=== PATIENT | male | born 1945 | race Caucasian/White ===

== ENCOUNTER 2025-06-25 17:10 | Inpatient (IN) ==
--- NOTE | 2025-06-25 18:21 | Emergency Department Note ---
Impression & Plan Pneumonia, Coronavirus infection, Hypotension, Soft tissue sarcoma ED Provider Note CHIEF COMPLAINT: Nausea, vomiting, fever HISTORY OF PRESENTING ILLNESS: This 79-year-old male patient presents to the emergency department with his for evaluation of nausea, vomiting, right sided abdominal pain, and subjective fever (did not have a thermometer). The patient states that he had similar symptoms when he was diagnosed with the sarcoma and bowel perforation. He has not been moving his bowels well recently. He did have a small BM this morning. He has been burping foul smelling burps recently. He denies any urinary symptoms. He denies any chest pain or SOB. 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 The patient is currently under treatment with oral chemo through the [facility]. However, he has been off of the oral chemo for the past 5 weeks. [facility] [place] The patient just returned home from a cruise today and states the last 4 days of his cruise he had nausea, vomiting, no fever. No symptoms today, but he called his oncologist who told him to come in for evaluation. The patient has a history of abdominal blockages as well as bowel perforation. The patient is currently visiting his sister in [place] on their way back to [place] after the cruise. REVIEW OF SYSTEMS: See HPI for pertinent positives and pertinent negatives. ALLERGIES: Psychiatric meds like Sertraline, Morphine (nausea) MEDICATIONS: Flonase, magnesium 420 mg BID, Synthroid 125 mcg QD, Claritin, Trospium 20 mg QD, Protonix 40 mg QD, Spironolactone 25 mg 2 tabs QD, Pregabalin 50 mg BID, Metformin 500 mg QD, Flomax, Aspririn 81 mg, Cholecalcif 50 mg QD, Atorvastatin 10 mg QHS PAST MEDICAL HISTORY: Hypothyroidism, GERD, DM, allergic rhinitis, high cholesterol, adrenal cysts, soft tissue sarcoma of the abdomen, PTSD, HTN, BPH PHYSICAL EXAM: VITALS: Vitals are noted on the nurse's note and reviewed by myself. GENERAL: Non toxic, in no acute distress, non-diaphoretic. SKIN: Capillary refill <2 sec. EYES: PERRLA. EOMI. Conjunctivae without injection, sclerae without icterus. NOSE: Patent without discharge. MOUTH: Mucous membranes moist. Uvula midline. Airway patent. NECK: Supple without nuchal rigidity. HEART: Regular rate and rhythm without murmurs gallops or rubs. LUNGS: Clear to auscultation bilaterally without wheezes, rales or rhonchi. No retractions or accessory muscle use. ABDOMEN: Positive bowel sounds x 4. Normal tympanic percussion. Soft, tender to palpation in the central and right side of the abdomen. No masses or hepatosplenomegaly. Roche sign negative. No CVA tenderness. No guarding, rigidity, or rebound tenderness. No focal RLQ or LLQ tenderness. NEURO: Patient was alert and oriented. No focal neurological deficits. DIFFERENTIAL DIAGNOSIS: Differential diagnosis includes hepatitis, pancreatitis, cholecystitis, cholelithiasis, appendicitis, kidney stone, pyelonephritis, UTI, gastritis, gastroenteritis, mesenteric adenitis, obstruction, constipation, hernia, abdominal abscess, perforation, diverticulitis, IBD, ischemic colitis, abdominal aortic aneurysm, testicular torsion, prostatitis, or others. ED COURSE AND MEDICAL DECISION MAKING: HISTORY FROM INDEPENDENT HISTORIAN: Additional history obtained from the patient's MEDICATIONS GIVEN: A total of 2 L normal saline solution bolus. Tylenol 1000 mg IV. Magnesium 1 g IV. Rocephin 2 g IV and doxycycline 100 mg p.o. MONITOR: Continuous senior treasury consultant: Order was placed for continuous senior treasury consultant. Patient was placed on the senior treasury consultant and continuous pulse ox. Patient was noted to be in normal sinus rhythm at an initial rate of 90 bpm per my interpretation. INTERPRETATION OF LABS: I interpreted the labs with full lab results as below in the lab section of this note. Laboratory results pertinent to the emergent complaint are discussed in the MDM section below. The patient was advised to follow up with their PCP and/or specialist(s) for further outpatient monitoring and management of any abnormal results. INTERPRETATION OF IMAGING: Imaging studies were interpreted by myself and read by radiology as per the imaging section of this note. The patient was advised to follow up with their PCP and/or specialist(s) for further outpatient management of any non-emergent abnormal findings. Chest x-ray showed opacities in the left midlung and at the right base, atelectasis, scarring, and/or infiltrate. 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 CHRONIC MEDICAL/SOCIAL CONDITIONS AFFECTING CARE: History of soft tissue sarcoma of the abdomen receiving oral chemotherapy. Recent cruise. CONSULTATIONS: On-call hospitalist [facility] SUMMARY: I examined the patient. 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 However, the patient did recently stop his chemotherapy to go on a cruise. The patient returned from his cruise today and states that the last 4 days of his cruise he had nausea, vomiting, and subjective fevers along with right sided abdominal pain that felt the same as when he was diagnosed with a sarcoma and had a bowel perforation. The patient states that the nausea, vomiting, and fevers have resolved today, but he is still having some mild abdominal discomfort. The patient contacted his oncologist who advised him to come to the ER for further evaluation. An IV lock was placed and labs were drawn. The patient was initially given 500 mL normal saline solution bolus and Tylenol 1000 mg IV. Lactate and procalcitonin were normal. White blood cell count normal at 9.06. Hemoglobin low at 10.6, but the patient states this is baseline for him. Platelet count normal at 327. Coags were normal. Sodium low at 135, BUN elevated at 28, glucose 148, but CMP otherwise without concerning findings. Lipase normal. High-sensitivity troponin normal. Magnesium low at 1.6 and he was given magnesium 1 g IV. Urinalysis with trace ketones, but otherwise normal. Respiratory BioFire positive for coronavirus 229E. Blood cultures are pending. While in the ER, the patient did become hypotensive. He was given another 500 mL normal saline solution bolus with mild continued hypotension. Chest x-ray showed opacities in the left midlung and at the right base, atelectasis, scarring, and/or infiltrate. The patient was given another 1 L normal saline solution bolus for a total of 2 L normal saline solution bolus. The patient's ideal body weight sepsis fluid calculation is 2181.6 mL. Additional IV fluids were not given due to concern for fluid overload. The patient was given Rocephin 2 g IV and doxycycline 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 I had a meaningful discussion about this patient with Dr. Blackwell who agrees with my assessment and the treatment plan. Due to the patient's history of cancer and oral chemotherapy with the coronavirus infection, pneumonia, and hypotension, we feel the patient would benefit from admission for further evaluation and treatment. The patient and his were agreeable to admission after discussion. I spoke with the on-call hospitalist who agreed to admit the patient for further management. Please refer to their dictation for further details. The patient's care was transferred in stable condition. DIAGNOSIS: Pneumonia Coronavirus 229E Hypotension History of soft tissue sarcoma Past Med/Surg History Problem List (Updated 06/25/25 @ 23:49 by Jenna Kevin PA-C) Soft tissue sarcoma (Acute) Hypotension (Acute) Coronavirus infection (Acute) Pneumonia (Acute) Social History Smoking Status: Former smoker Preferred Language: Ugandan Feels Safe at Home: Yes Allergies Allergies Allergy/AdvReac Type Severity Reaction Status Date / Time morphine AdvReac Nausea Verified 06/25/25 22:45 Results & Data (ED) Vital Signs Vital Signs - 24 hr 06/25/25 17:39 06/25/25 18:23 06/25/25 19:11 Temperature 36.6 C Temperature Source Oral Pulse Rate 104 H 99 H Pulse Rate [Apical] 98 H Pulse Rhythm [Apical] Regular Pulse Strength [Apical] Respiratory Rate 20 19 Respiratory Effort / Characteristics Non-Labored Spontaneous Respiratory Depth Normal Respiratory Pattern Regular Blood Pressure 107/70 Blood Pressure [Left Arm] 115/76 Blood Pressure Mean 82 Blood Pressure Mean [Left Arm] 89 Blood Pressure Position [Left Arm] Sitting Pulse Oximetry 95 97 Oxygen Delivery Method Room Air Room Air Sepsis Recent Fever Within 48 Hours No Sepsis New/Unexplained Change in Mental Status N/A Sepsis Action Taken by Nursing No Action Required 06/25/25 21:00 06/25/25 22:43 Temperature Temperature Source Pulse Rate Pulse Rate [Apical] 91 H 88 Pulse Rhythm [Apical] Regular Pulse Strength [Apical] Normal Respiratory Rate 18 20 Respiratory Effort / Characteristics Non-Labored Spontaneous Non-Labored Spontaneous Respiratory Depth Normal Normal Respiratory Pattern Regular Regular Blood Pressure Blood Pressure [Left Arm] 96/68 L 95/68 L Blood Pressure Mean Blood Pressure Mean [Left Arm] 77 77 Blood Pressure Position [Left Arm] Sitting Lying Pulse Oximetry 95 91 Oxygen Delivery Method Room Air Room Air Sepsis Recent Fever Within 48 Hours Sepsis New/Unexplained Change in Mental Status Sepsis Action Taken by Nursing Laboratory Data 06/25/25 18:13 06/25/25 18:13 Lab Results 06/25/25 06/25/25 06/25/25 Range/Units 18:13 18:48 19:05 WBC 9.06 (4.8-10.8) K/ul RBC 3.24 L (4.70-6.10) M/uL Hgb 10.6 L (14.0-18.0) g/dL Hct 31.6 L (42.0-52.0) % MCV 97.5 (80.0-100.0) fL MCH 32.7 (25.0-34.0) pg MCHC 33.5 (32.0-36.0) g/dL RDW Std Deviation 47.7 H (36.4-46.3) fL RDW Coeff of Urvashi 13.2 (11.5-14.5) % Plt Count 327 (130-400) K/uL MPV 8.7 L (9.4-12.4) fL Immature Gran % (Auto) 0.8 % Neut % (Auto) 68.5 % Lymph % (Auto) 17.1 % Hickman % (Auto) 11.0 % Eos % (Auto) 2.3 % Baso % (Auto) 0.3 % Neut # (Auto) 6.20 (1.40-6.50) K/uL Lymph # (Auto) 1.55 (1.20-3.40) K/uL Hickman # (Auto) 1.00 H (0.11-0.59) K/uL Eos # (Auto) 0.21 (0.00-0.50) K/uL Baso # (Auto) 0.03 (0.00-0.20) K/uL Immature Gran # (Auto) 0.07 (0.01-0.20) K/uL PT 11.1 (9.0-12.0) Seconds INR 1.1 (0.9-1.1) APTT 27 (21-31) Seconds PTT Ratio 1.0 Sodium 135 L (136-145) mmol/L Potassium 3.9 (3.5-5.1) mmol/L Chloride 102 (98-107) mmol/L Carbon Dioxide 25 (21-32) mmol/L Anion Gap 8 (3-11) BUN 28 H (6-23) mg/dl Creatinine 1.27 (0.6-1.4) mg/dl Est Cr Clr Drug Dosing Not Reportable eGFR 58.19 BUN/Creatinine Ratio 22.0 H (10-20) Glucose 148 H (70-99(Fasting)) mg/dl Lactate 1.1 (0.4-2.0) mmol/L Calcium 9.6 (8.6-10.3) mg/dl Magnesium 1.6 L (1.7-2.4) mg/dl Total Bilirubin 0.4 (0.2-1.0) mg/dl AST 11 L (13-39) U/L ALT 8 (7-52) U/L Alkaline Phosphatase 75 (34-104) U/L Troponin I High Sens 14.6 (0-20) pg/ml Total Protein 6.5 (6.0-8.3) gm/dl Albumin 3.5 (3.4-5.0) gm/dl Globulin 3.0 (2.5-4.0) gm/dl Albumin/Globulin Ratio 1.2 (0.9-2) Lipase 16 (11-82) U/L Procalcitonin 0.23 (0-0.5) ng/ml Urine Color Urine Appearance (Clear) Urine pH (4.5-7.5) Ur Specific [place] (1.000-1.030) Urine Protein (Negative) Urine Glucose (UA) (Negative) Urine Ketones (Negative) Urine Blood (Negative) Urine Nitrite (Negative) Urine Bilirubin (Negative) Urine Urobilinogen (Negative) Ur Leukocyte Esterase (Negative) Urine WBC (Auto) (0-5) /hpf Urine RBC (Auto) (0-2) /hpf U Hyaline Cast (Auto) (0-2) /lpf U Epithel Cells (Auto) (0-2) /hpf Urine Bacteria (Auto) (None Seen) Urine Comment Adenovirus (PCR) Not Detected (NotDetected) B. pertussis DNA (PCR) Not Detected (NotDetected) B.parapertussis DNA PCR Not Detected (NotDetected) C. pneumoniae DNA (PCR) Not Detected (NotDetected) Coronavirus OC43 (PCR) Not Detected (NotDetected) Coronavirus HKU1 (PCR) Not Detected (NotDetected) Coronavirus 229E (PCR) DETECTED A (NotDetected) SARS-CoV-2 (PCR) Not Detected (NotDetected) Coronavirus NL63 (PCR) Not Detected (NotDetected) Human Metapneumovir PCR Not Detected (NotDetected) Influenza Type A (PCR) Not Detected (NotDetected) Influenza Type B (PCR) Not Detected (NotDetected) M. pneumoniae (PCR) Not Detected (NotDetected) Parainfluenza 1 (PCR) Not Detected (NotDetected) Parainfluenza 2 (PCR) Not Detected (NotDetected) Parainfluenza 3 (PCR) Not Detected (NotDetected) Parainfluenza 4 (PCR) Not Detected (NotDetected) RSV (PCR) Not Detected (NotDetected) Entero/Rhino (PCR) Not Detected (NotDetected) 06/25/25 Range/Units 19:47 WBC (4.8-10.8) K/ul RBC (4.70-6.10) M/uL Hgb (14.0-18.0) g/dL Hct (42.0-52.0) % MCV (80.0-100.0) fL MCH (25.0-34.0) pg MCHC (32.0-36.0) g/dL RDW Std Deviation (36.4-46.3) fL RDW Coeff of Urvashi (11.5-14.5) % Plt Count (130-400) K/uL MPV (9.4-12.4) fL Immature Gran % (Auto) % Neut % (Auto) % Lymph % (Auto) % Hickman % (Auto) % Eos % (Auto) % Baso % (Auto) % Neut # (Auto) (1.40-6.50) K/uL Lymph # (Auto) (1.20-3.40) K/uL Hickman # (Auto) (0.11-0.59) K/uL Eos # (Auto) (0.00-0.50) K/uL Baso # (Auto) (0.00-0.20) K/uL Immature Gran # (Auto) (0.01-0.20) K/uL PT (9.0-12.0) Seconds INR (0.9-1.1) APTT (21-31) Seconds PTT Ratio Sodium (136-145) mmol/L Potassium (3.5-5.1) mmol/L Chloride (98-107) mmol/L Carbon Dioxide (21-32) mmol/L Anion Gap (3-11) BUN (6-23) mg/dl Creatinine (0.6-1.4) mg/dl Est Cr Clr Drug Dosing eGFR BUN/Creatinine Ratio (10-20) Glucose (70-99(Fasting)) mg/dl Lactate (0.4-2.0) mmol/L Calcium (8.6-10.3) mg/dl Magnesium (1.7-2.4) mg/dl Total Bilirubin (0.2-1.0) mg/dl AST (13-39) U/L ALT (7-52) U/L Alkaline Phosphatase (34-104) U/L Troponin I High Sens (0-20) pg/ml Total Protein (6.0-8.3) gm/dl Albumin (3.4-5.0) gm/dl Globulin (2.5-4.0) gm/dl Albumin/Globulin Ratio (0.9-2) Lipase (11-82) U/L Procalcitonin (0-0.5) ng/ml Urine Color Yellow Urine Appearance Clear (Clear) Urine pH 5.5 (4.5-7.5) Ur Specific [place] 1.021 (1.000-1.030) Urine Protein Trace H (Negative) Urine Glucose (UA) Negative (Negative) Urine Ketones Trace H (Negative) Urine Blood Negative (Negative) Urine Nitrite Negative (Negative) Urine Bilirubin Negative (Negative) Urine Urobilinogen Negative (Negative) Ur Leukocyte Esterase Negative (Negative) Urine WBC (Auto) 0-5 (0-5) /hpf Urine RBC (Auto) 0-2 (0-2) /hpf U Hyaline Cast (Auto) 0-2 (0-2) /lpf U Epithel Cells (Auto) 0-2 (0-2) /hpf Urine Bacteria (Auto) None Seen (None Seen) Urine Comment Adenovirus (PCR) (NotDetected) B. pertussis DNA (PCR) (NotDetected) B.parapertussis DNA PCR (NotDetected) C. pneumoniae DNA (PCR) (NotDetected) Coronavirus OC43 (PCR) (NotDetected) Coronavirus HKU1 (PCR) (NotDetected) Coronavirus 229E (PCR) (NotDetected) SARS-CoV-2 (PCR) (NotDetected) Coronavirus NL63 (PCR) (NotDetected) Human Metapneumovir PCR (NotDetected) Influenza Type A (PCR) (NotDetected) Influenza Type B (PCR) (NotDetected) M. pneumoniae (PCR) (NotDetected) Parainfluenza 1 (PCR) (NotDetected) Parainfluenza 2 (PCR) (NotDetected) Parainfluenza 3 (PCR) (NotDetected) Parainfluenza 4 (PCR) (NotDetected) RSV (PCR) (NotDetected) Entero/Rhino (PCR) (NotDetected) Administered Medications Sodium Chloride (Nss) 1,000 mls @ 999 mls/hr IV .Q1H1M ONE Stop: 06/25/25 23:45 Last Admin: 06/25/25 23:21 Dose: 999 mls/hr Documented By: CRISTINA Discontinued Medications Doxycycline Hyclate (Doxycycline Hyclate 100 Mg Cap) 100 mg PO NOW STA Stop: 06/25/25 22:47 Last Admin: 06/25/25 23:21 Dose: 100 mg Documented By: CRISTINA Sodium Chloride (Nss) 500 mls @ 999 mls/hr IV .Q31M ONE Stop: 06/25/25 19:08 Last Infusion: 06/25/25 20:40 Dose: Infused Documented By: [facility] [place] Admin: 06/25/25 19:00 Dose: 999 mls/hr Documented By: aster Acetaminophen (Ofirmev) 1,000 mg in 100 mls @ 400 mls/hr IV NOW STA Stop: 06/25/25 18:52 Last Infusion: 06/25/25 19:49 Dose: Infused Documented By: [facility] [place] [place] Admin: 06/25/25 19:00 Dose: 400 mls/hr Documented By: aster Sodium Chloride (Nss) 500 mls @ 999 mls/hr IV .Q31M ONE Stop: 06/25/25 21:44 Last Infusion: 06/25/25 22:29 Dose: Infused Documented By: aster Admin: 06/25/25 21:23 Dose: 999 mls/hr Documented By: aster Ceftriaxone Sodium (Rocephin) 2,000 mg in 50 mls @ 100 mls/hr IV NOW STA Stop: 06/25/25 23:15 Last Admin: 06/25/25 23:21 Dose: 100 mls/hr Documented By: CRISTINA Ioversol (Optiray 320 100ml) 93 ml IV ONCE ONE Stop: 06/25/25 19:30 Last Admin: 06/25/25 19:29 Dose: 93 ml Documented By: MELVIN Imaging Data Radiologist's Impression: Abdomen/Pelvis CT 06/25/25 18:38 CT of the abdomen pelvis withContrast Technique: Postcontrast axial images of the abdomen pelvis. Coronal and sagittal reformatted images made available for review No comparison Findings: Lung bases are clear. 3.3 cm right renal cyst. 1.7 cm left renal cyst 1.9 cm left adrenal gland nodule. Remaining solid abdominal organs unremarkable in appearance. No free air or intestinal obstruction. There are numerous mesenteric lymph nodes present measuring up to 5.5 x 4.3 cm in the left upper abdomen. There is a large mass within the right lower quadrant which is indistinguishable from adjacent loops of small bowel measuring 7 x 7.2 cm. Conglomeration of loops of small bowel within the left lower quadrant also noted. Urinary bladder is unremarkable. Prostate is enlarged. Bone windows are unremarkable. 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 Electronically signed by Partha Rosales 06-25-2025 10:02 PM Chest X-Ray 06/25/25 18:38 Exam(s): XR CXR 1 VIEW EXAM: XR Chest, 1 View CLINICAL HISTORY: Reason for exam: fever, N/V, h/o sarcoma. TECHNIQUE: Frontal view of the chest. COMPARISON: No relevant prior studies available. FINDINGS: Lungs: Opacities in the left midlung and at the right base, atelectasis, scarring, or infiltrate. Pleural space: No pleural effusion. No pneumothorax. Heart: Unremarkable. No cardiomegaly. IMPRESSION: Opacities in the left midlung and at the right base, atelectasis, scarring, or infiltrate. Electronically signed by: Lauri House MD 06/25/25 22:14 PM Discharge Plan Visit Data Chief Complaint: Referred by Doctor Stated Complaint: REF BY [facility] (PREV GOT TREATMENT) ED Provider: Leonard Blackwell ED Midlevel Provider: Jenna Kevin Discharge Problem: Pneumonia, Coronavirus infection, Hypotension, Soft tissue sarcoma Patient Disposition: Admitted As Inpatient Condition: Fair Forms Stand Alone Forms: [facility] Referrals Referrals: PCP,NO [Physician] - Discharge Problem: Pneumonia Qualifiers: Pneumonia type: due to unspecified organism Laterality: unspecified laterality Lung location: unspecified part of lung Qualified Code(s): J18.9 - Pneumonia, unspecified organism Hypotension Qualifiers: Hypotension type: unspecified hypotension type Qualified Code(s): I95.9 - Hypotension, unspecified
[2025-06-25 18:25] LABS: Hematocrit (blood only) 31.6 % (42.0-52.0); Hemoglobin 10.6 g/dL (14.0-18.0); Immature Granulocytes # (auto) 0.07 K/uL (0.01-0.20); Immature Granulocytes % (auto) 0.8 %; Mean Corpuscular Hemoglobin 32.7 pg (25.0-34.0); Mean Corpuscular Volume 97.5 fL (80.0-100.0); Platelet Count 327 K/uL (130-400); RDW Standard Deviation 47.7 fL (36.4-46.3); Red Blood Count 3.24 M/uL (4.70-6.10); White Blood Count 9.06 K/ul (4.8-10.8)
[2025-06-25 18:43] LABS: Alanine Aminotransferase 8 U/L (7-52); Albumin Globulin Ratio 1.2 (0.9-2); Albumin Level 3.5 gm/dl (3.4-5.0); Alkaline Phosphatase 75 U/L (34-104); Anion Gap 8 (3-11); Bilirubin,Total 0.4 mg/dl (0.2-1.0); Blood Urea Nitrogen 28 mg/dl (6-23); Calcium 9.6 mg/dl (8.6-10.3); Carbon Dioxide 25 mmol/L (21-32); Chloride 102 mmol/L (98-107); Globulin 3.0 gm/dl (2.5-4.0); Glucose 148 mg/dl (70-99(Fasting)); Lipase 16 U/L (11-82); Potassium 3.9 mmol/L (3.5-5.1); Sodium 135 mmol/L (136-145); Total Protein 6.5 gm/dl (6.0-8.3)
[2025-06-25] MEDS: ACETAMINOPHEN 1,000 MG/100 ML VIAL IV STA (19:00)
[2025-06-25] MEDS: SODIUM CHLORIDE 0.9% 500 ML IV ONE ×2 (19:00→21:23)
[2025-06-25 19:07] LABS: INR 1.1 (0.9-1.1); Magnesium 1.6 mg/dl (1.7-2.4); Partial Thromboplastin Time 27 Seconds (21-31); Prothrombin Time 11.1 Seconds (9.0-12.0)
[2025-06-25] MEDS: OPTIRAY 320 100ml IV ONE (19:29)
[2025-06-25 19:55] LABS: Chlamydia pneumoniae PCR Not Detected (NotDetected); Coronavirus 229E PCR DETECTED (NotDetected); Coronavirus CoV-2 (COVID19)PCR Not Detected (NotDetected); Coronavirus HKU1 PCR Not Detected (NotDetected); Coronavirus NL63 PCR Not Detected (NotDetected); Coronavirus OC43PCR Not Detected (NotDetected); Human Metapneumovirus PCR Not Detected (NotDetected); Parainfluenza Virus 1 PCR Not Detected (NotDetected); Parainfluenza Virus 2 PCR Not Detected (NotDetected); Parainfluenza Virus 3 PCR Not Detected (NotDetected); Parainfluenza Virus 4 PCR Not Detected (NotDetected); Respiratory Syncytial VirusPCR Not Detected (NotDetected); Rhinovirus/Enterovirus PCR Not Detected (NotDetected)
[2025-06-25 20:01] LABS: Appearance Urine Clear (Clear); Bacteria Urine Automated None Seen (None Seen); Cast Urine Automated 0-2 /lpf (0-2); Epithelial Cell Urine Auto 0-2 /hpf (0-2); Glucose Urine UA Negative (Negative); RBC Urine Automated 0-2 /hpf (0-2); WBC Urine Automated 0-5 /hpf (0-5)
--- NOTE | 2025-06-25 22:03 | CT Scan Report ---
CT of the abdomen pelvis withContrast Technique: Postcontrast axial images of the abdomen pelvis. Coronal and sagittal reformatted images made available for review No comparison Findings: Lung bases are clear. 3.3 cm right renal cyst. 1.7 cm left renal cyst 1.9 cm left adrenal gland nodule. Remaining solid abdominal organs unremarkable in appearance. No free air or intestinal obstruction. There are numerous mesenteric lymph nodes present measuring up to 5.5 x 4.3 cm in the left upper abdomen. There is a large mass within the right lower quadrant which is indistinguishable from adjacent loops of small bowel measuring 7 x 7.2 cm. Conglomeration of loops of small bowel within the left lower quadrant also noted. Urinary bladder is unremarkable. Prostate is enlarged. Bone windows are unremarkable. 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 Electronically signed by Partha Rosales 06-25-2025 10:02 PM
--- NOTE | 2025-06-25 22:15 | XRay Report ---
Exam(s): XR CXR 1 VIEW EXAM: XR Chest, 1 View CLINICAL HISTORY: Reason for exam: fever, N/V, h/o sarcoma. TECHNIQUE: Frontal view of the chest. COMPARISON: No relevant prior studies available. FINDINGS: Lungs: Opacities in the left midlung and at the right base, atelectasis, scarring, or infiltrate. Pleural space: No pleural effusion. No pneumothorax. Heart: Unremarkable. No cardiomegaly. IMPRESSION: Opacities in the left midlung and at the right base, atelectasis, scarring, or infiltrate. Electronically signed by: Lauri House MD 06/25/25 22:14 PM
--- NOTE | 2025-06-25 23:05 | History & Physical Report ---
Date of Service June 25, 2025 Assessment & Plan (1) Hypotension: Plan: Assessment and plan below following discussion of case with ED provider and reviewing patient history/pertinent normal/abnormal diagnostic test results. 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 labs Provide patient with CD of CTAP images given abnormal findings prior to discharge. DVT prophylaxis per Lovenox subcu Full code Patient requesting updates providers. Mechelle Carrie Boggs, contact #[phone]. Text document was generated using [employer] voice recognition software. It may contain grammatical or spelling errors. Kindly contact undersigned for clarification of any documentation item in question. History of Present Illness Chief Complaint: Weakness Primary Care Provider: Dr. TANYA PEÑA from [place], [place] History obtained from patient, family, and records. Medical history significant for hypertension, hyperlipidemia, VALENTINA on CPAP, DM2 on oral medication, hypothyroidism, GIST tumor status post surgery currently on Sutent, GERD, BPH, chronic anemia (unknown baseline), adrenal nodule, marijuana use, past tobacco abuse. Patient is a resident of [place], [place] who just returned from a 12-day [place] cruise today disembarking at [facility]. Patient passing by town to visit sister who lives locally before returning home to [place] tomorrow morning. Patient became sick on the cruise 4 days ago. Achy abdominal pain associate with nausea, vomiting symptoms. No diarrhea. No obvious bleeding. Usual cough productive of yellow sputum which patient attributes to smoking history. No chest pain, no SOB. Increasing weakness. Voice change noted as well. Patient consulted ER for worsening symptoms. NSS bolus, IV ceftriaxone and doxycycline administered at the ER. Lowest SBP of 90s documented at the ER. Medical History as above Surgical History : Leg surgery, bowel surgery Family History : Lung cancer Personal/Social history : Past tobacco abuse, ongoing marijuana use, retired [employer] employee Allergies Allergy/AdvReac Type Severity Reaction Status Date / Time pollen extracts Allergy Intermediate ITCHY Verified 06/26/25 00:01 EYES, SNEEZING, CONGESTION morphine AdvReac Mild Nausea Verified 06/25/25 23:49 Home Medications Medication Instructions Recorded Confirmed Type acetaminophen 325 mg tablet 650 mg PO QID PRN Pain 06/25/25 06/26/25 History (Tylenol) aspirin 81 mg tablet,delayed 81 mg PO DAILY 06/25/25 06/26/25 History release atorvastatin 10 mg tablet 10 mg PO HS 06/25/25 06/26/25 History cholecalciferol (vitamin D3) 50 50 mcg PO DAILY 06/25/25 06/26/25 History mcg (2,000 unit) capsule (Vitamin D3) fluticasone propionate 50 2 spray intranasal DAILY 06/25/25 06/26/25 History mcg/actuation nasal spray,suspension levothyroxine 125 mcg tablet 125 mcg PO DAILYBB 06/25/25 06/26/25 History (Synthroid) loratadine 10 mg tablet (Claritin) 10 mg PO DAILY 06/25/25 06/26/25 History magnesium oxide 420 mg tablet 840 mg PO DAILY 06/25/25 06/26/25 History metformin 500 mg tablet 500 mg PO QDD 06/25/25 06/26/25 History mirtazapine 30 mg tablet 30 mg PO HS 06/25/25 06/26/25 History pantoprazole 40 mg tablet,delayed 40 mg PO DAILYBB 06/25/25 06/26/25 History release pregabalin 50 mg capsule (Lyrica) 50 mg PO BID 06/25/25 06/26/25 History spironolactone 25 mg tablet 50 mg PO DAILY 06/25/25 06/26/25 History tamsulosin 0.4 mg capsule 0.8 mg PO HS 06/25/25 06/26/25 History trospium 20 mg tablet 20 mg PO DAILYBB 06/25/25 06/26/25 History Past Med/Surg History Problem List (Updated 06/25/25 @ 23:49 by Jenna Kevin PA-C) Soft tissue sarcoma (Acute) Hypotension (Acute) Coronavirus infection (Acute) Pneumonia (Acute) Social History Smoking Status: Never smoker Hx Alcohol Use: Yes Alcohol type: beer Hx Substance Use: Yes Last Used Substance: Days (ago) Preferred Language: Tajik Communication Ability: Effective [employer]lee[employer] Worker Required: No Current Living Situation: Spouse Other Information That Helps Us Care for You: No Feels Safe at Home: Yes Safety Concerns: Feels Safe At This Time Assistive Devices: Denture - Upper, Glasses and Hearing Aid - Bilateral Review of Systems Review of Systems: As per HPI, all other systems reviewed and negative Physical Exam Physical Exam: GENERAL: Comfortable, pleasant, obese, no respiratory distress SKIN: Pallor, warm HEENT: Pale palpebral conjunctivae, no ptosis, dry buccal mucosa NECK : Supple, no tenderness CHEST : CTA, no tenderness HEART : Decreased breath sounds, no obvious murmurs ABDOMEN: Some distention, minimal epigastric tenderness EXTREMITIES : No LE swelling/tenderness, palpable pulses, no other conspicuous deformities noted NEUROLOGIC : Coherent, no facial asymmetry, no other gross focality Results & Data Results & Data Vital Signs (Past 12 Hours) Vital Signs Temp Pulse Pulse Resp BP BP Pulse Ox 06/25/25 22:43 88 20 95/68 L 91 06/25/25 21:00 91 H 18 96/68 L 95 06/25/25 19:11 98 H 19 115/76 97 06/25/25 18:23 99 H 06/25/25 17:39 36.6 C 104 H 20 107/70 95 O2 Del Method 06/25/25 22:43 Room Air 06/25/25 21:00 Room Air 06/25/25 19:11 Room Air 06/25/25 18:23 06/25/25 17:39 Room Air Laboratory Results Laboratory Results WBC 9.06 K/ul (4.8-10.8) 06/25/25 18:13 RBC 3.24 M/uL (4.70-6.10) L 06/25/25 18:13 Hgb 10.6 g/dL (14.0-18.0) L 06/25/25 18:13 Hct 31.6 % (42.0-52.0) L 06/25/25 18:13 MCV 97.5 fL (80.0-100.0) 06/25/25 18:13 MCH 32.7 pg (25.0-34.0) 06/25/25 18:13 MCHC 33.5 g/dL (32.0-36.0) 06/25/25 18:13 RDW Std Deviation 47.7 fL (36.4-46.3) H 06/25/25 18:13 RDW Coeff of [place] 13.2 % (11.5-14.5) 06/25/25 18:13 Plt Count 327 K/uL (130-400) 06/25/25 18:13 MPV 8.7 fL (9.4-12.4) L 06/25/25 18:13 Immature Gran % (Auto) 0.8 % 06/25/25 18:13 Neut % (Auto) 68.5 % 06/25/25 18:13 Lymph % (Auto) 17.1 % 06/25/25 18:13 [place] % (Auto) 11.0 % 06/25/25 18:13 Eos % (Auto) 2.3 % 06/25/25 18:13 Baso % (Auto) 0.3 % 06/25/25 18:13 Neut # (Auto) 6.20 K/uL (1.40-6.50) 06/25/25 18:13 Lymph # (Auto) 1.55 K/uL (1.20-3.40) 06/25/25 18:13 [place] # (Auto) 1.00 K/uL (0.11-0.59) H 06/25/25 18:13 Eos # (Auto) 0.21 K/uL (0.00-0.50) 06/25/25 18:13 Baso # (Auto) 0.03 K/uL (0.00-0.20) 06/25/25 18:13 Immature Gran # (Auto) 0.07 K/uL (0.01-0.20) 06/25/25 18:13 PT 11.1 Seconds (9.0-12.0) 06/25/25 18:13 INR 1.1 (0.9-1.1) 06/25/25 18:13 APTT 27 Seconds (21-31) 06/25/25 18:13 PTT Ratio 1.0 06/25/25 18:13 Sodium 135 mmol/L (136-145) L 06/25/25 18:13 Potassium 3.9 mmol/L (3.5-5.1) 06/25/25 18:13 Chloride 102 mmol/L (98-107) 06/25/25 18:13 Carbon Dioxide 25 mmol/L (21-32) 06/25/25 18:13 Anion Gap 8 (3-11) 06/25/25 18:13 BUN 28 mg/dl (6-23) H 06/25/25 18:13 Creatinine 1.27 mg/dl (0.6-1.4) 06/25/25 18:13 Est Cr Clr Drug Dosing Not Reportable 06/25/25 18:13 eGFR 58.19 06/25/25 18:13 BUN/Creatinine Ratio 22.0 (10-20) H 06/25/25 18:13 Glucose 148 mg/dl (70-99(Fasting)) H 06/25/25 18:13 Lactate 1.1 mmol/L (0.4-2.0) 06/25/25 19:05 Calcium 9.6 mg/dl (8.6-10.3) 06/25/25 18:13 Magnesium 1.6 mg/dl (1.7-2.4) L 06/25/25 18:13 Total Bilirubin 0.4 mg/dl (0.2-1.0) 06/25/25 18:13 AST 11 U/L (13-39) L 06/25/25 18:13 ALT 8 U/L (7-52) 06/25/25 18:13 Alkaline Phosphatase 75 U/L (34-104) 06/25/25 18:13 Troponin I High Sens 14.6 pg/ml (0-20) 06/25/25 18:13 Total Protein 6.5 gm/dl (6.0-8.3) 06/25/25 18:13 Albumin 3.5 gm/dl (3.4-5.0) 06/25/25 18:13 Globulin 3.0 gm/dl (2.5-4.0) 06/25/25 18:13 Albumin/Globulin Ratio 1.2 (0.9-2) 06/25/25 18:13 Lipase 16 U/L (11-82) 06/25/25 18:13 Procalcitonin 0.23 ng/ml (0-0.5) 06/25/25 18:13 Urine Color Yellow 06/25/25 19:47 Urine Appearance Clear (Clear) 06/25/25 19:47 Urine pH 5.5 (4.5-7.5) 06/25/25 19:47 Ur Specific [place] 1.021 (1.000-1.030) 06/25/25 19:47 Urine Protein Trace (Negative) H 06/25/25 19:47 Urine Glucose (UA) Negative (Negative) 06/25/25 19:47 Urine Ketones Trace (Negative) H 06/25/25 19:47 Urine Blood Negative (Negative) 06/25/25 19:47 Urine Nitrite Negative (Negative) 06/25/25 19:47 Urine Bilirubin Negative (Negative) 06/25/25 19:47 Urine Urobilinogen Negative (Negative) 06/25/25 19:47 Ur Leukocyte Esterase Negative (Negative) 06/25/25 19:47 Urine WBC (Auto) 0-5 /hpf (0-5) 06/25/25 19:47 Urine RBC (Auto) 0-2 /hpf (0-2) 06/25/25 19:47 U Hyaline Cast (Auto) 0-2 /lpf (0-2) 06/25/25 19:47 U Epithel Cells (Auto) 0-2 /hpf (0-2) 06/25/25 19:47 Urine Bacteria (Auto) None Seen (None Seen) 06/25/25 19:47 Urine Comment 06/25/25 19:47 Adenovirus (PCR) Not Detected (NotDetected) 06/25/25 18:48 B. pertussis DNA (PCR) Not Detected (NotDetected) 06/25/25 18:48 B.parapertussis DNA PCR Not Detected (NotDetected) 06/25/25 18:48 C. pneumoniae DNA (PCR) Not Detected (NotDetected) 06/25/25 18:48 Coronavirus OC43 (PCR) Not Detected (NotDetected) 06/25/25 18:48 Coronavirus HKU1 (PCR) Not Detected (NotDetected) 06/25/25 18:48 Coronavirus 229E (PCR) DETECTED (NotDetected) A 06/25/25 18:48 SARS-CoV-2 (PCR) Not Detected (NotDetected) 06/25/25 18:48 Coronavirus NL63 (PCR) Not Detected (NotDetected) 06/25/25 18:48 Human Metapneumovir PCR Not Detected (NotDetected) 06/25/25 18:48 Influenza Type A (PCR) Not Detected (NotDetected) 06/25/25 18:48 Influenza Type B (PCR) Not Detected (NotDetected) 06/25/25 18:48 M. pneumoniae (PCR) Not Detected (NotDetected) 06/25/25 18:48 Parainfluenza 1 (PCR) Not Detected (NotDetected) 06/25/25 18:48 Parainfluenza 2 (PCR) Not Detected (NotDetected) 06/25/25 18:48 Parainfluenza 3 (PCR) Not Detected (NotDetected) 06/25/25 18:48 Parainfluenza 4 (PCR) Not Detected (NotDetected) 06/25/25 18:48 RSV (PCR) Not Detected (NotDetected) 06/25/25 18:48 Entero/Rhino (PCR) Not Detected (NotDetected) 06/25/25 18:48 Impressions Abdomen/Pelvis CT 06/25/25 18:38 CT of the abdomen pelvis withContrast Technique: Postcontrast axial images of the abdomen pelvis. Coronal and sagittal reformatted images made available for review No comparison Findings: Lung bases are clear. 3.3 cm right renal cyst. 1.7 cm left renal cyst 1.9 cm left adrenal gland nodule. Remaining solid abdominal organs unremarkable in appearance. No free air or intestinal obstruction. There are numerous mesenteric lymph nodes present measuring up to 5.5 x 4.3 cm in the left upper abdomen. There is a large mass within the right lower quadrant which is indistinguishable from adjacent loops of small bowel measuring 7 x 7.2 cm. Conglomeration of loops of small bowel within the left lower quadrant also noted. Urinary bladder is unremarkable. Prostate is enlarged. Bone windows are unremarkable. 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 Electronically signed by Partha Rosales 06-25-2025 10:02 PM Chest X-Ray 06/25/25 18:38 Exam(s): XR CXR 1 VIEW EXAM: XR Chest, 1 View CLINICAL HISTORY: Reason for exam: fever, N/V, h/o sarcoma. TECHNIQUE: Frontal view of the chest. COMPARISON: No relevant prior studies available. FINDINGS: Lungs: Opacities in the left midlung and at the right base, atelectasis, scarring, or infiltrate. Pleural space: No pleural effusion. No pneumothorax. Heart: Unremarkable. No cardiomegaly. IMPRESSION: Opacities in the left midlung and at the right base, atelectasis, scarring, or infiltrate. Electronically signed by: Lauri House MD 06/25/25 22:14 PM Diagnostic Findings EKG as per my interpretation rate 95, NSR, normal axis, RBBB, no ischemia (1) Hypotension Hypotension type: unspecified hypotension type Qualified Code(s): I95.9 - Hypotension, unspecified
[2025-06-25] MEDS: SODIUM CHLORIDE 0.9% 1,000 ML IV ONE (23:21)
[2025-06-25] MEDS: cefTRIAXone SODIUM 2,000 MG/50 ML BAG IV STA (23:21)
[2025-06-25] MEDS: DOXYCYCLINE HYCLATE 100 MG CAP PO STA (23:21)
--- NOTE | 2025-06-25 23:44 | Emergency Department Note ---
ED Visit Note ED Physician Supervisory Note & Attestation: I was consulted by the Advanced Practice Provider, Jenna Kevin PA-C. I personally made/approved the management plan and take responsibility for the patient management. I performed a substantive portion of the visit. This includes the aspects of: MDM: 79-year-old gentleman with known cancer recently held his chemo med arrives for illness. Found to be hypotensive and workup revealing pneumonia and viral illness. Blood cultures have been sent earlier in the stay. He remains persist ently on the lower end blood pressure though not overtly hypotensive. Given his risk factors and findings hospitalization would be indicated. Imagin view chest x-ray as per my interpretation bilateral infiltrates no overt lobar obstruction. Leonard Blackwell MD
[2025-06-26] MEDS ORDERED: PROMETHAZINE 6.25 MG/50.25 ML BAG IV PRN (00:09)
[2025-06-26] MEDS ORDERED: ACETAMINOPHEN 325 MG TAB PO PRN (00:09)
[2025-06-26] MEDS: MAGNESIUM SULFATE / D5W 1 GM/100 ML BAG IV STA (00:15)
[2025-06-26] MEDS: AMPICILLIN/SULBACTAM SOD 3,000 MG/100 ML BAG IV STA (01:18)
[2025-06-26] MEDS: MIRTAZAPINE TAB 15 MG TAB PO SCH (01:22)
[2025-06-26] MEDS: SODIUM CHLORIDE 0.9% 1,000 ML IV STA (02:04)
[2025-06-26] MEDS ORDERED: GLUCAGON FOR INJ 1 MG VIAL SQ PRN (02:05)
[2025-06-26] MEDS ORDERED: GLUCOSE 10 TAB/TUBE PO PRN (02:05)
[2025-06-26] MEDS ORDERED: CARBOHYDRATES FOR HYPOGLYCEMIA PO PRN (02:05)
[2025-06-26] MEDS ORDERED: GLUCOSE 40% GEL 15 GM TUBE PO PRN (02:05)
[2025-06-26] MEDS ORDERED: DEXTROSE 50% 50 ML SYRINGE IV PRN (02:05)
[2025-06-26] MEDS: INSULIN ASPART PER UNIT CHARGE SC SCH (02:46)
[2025-06-26 05:34] LABS: Hematocrit (blood only) 29.7 % (42.0-52.0); Hemoglobin 9.9 g/dL (14.0-18.0); Immature Granulocytes # (auto) 0.07 K/uL (0.01-0.20); Immature Granulocytes % (auto) 1.0 %; Mean Corpuscular Hemoglobin 33.1 pg (25.0-34.0); Mean Corpuscular Volume 99.3 fL (80.0-100.0); Platelet Count 329 K/uL (130-400); RDW Standard Deviation 48.7 fL (36.4-46.3); Red Blood Count 2.99 M/uL (4.70-6.10); White Blood Count 6.99 K/ul (4.8-10.8)
[2025-06-26 05:50] LABS: Anion Gap 9.0 (3-11); Blood Urea Nitrogen 24.0 mg/dl (6-23); Calcium 8.8 mg/dl (8.6-10.3); Carbon Dioxide 25.0 mmol/L (21-32); Chloride 106.0 mmol/L (98-107); Creatinine Clr Calc Pharmacy 65.1 ml/min; Glucose 147.0 mg/dl (70-99(Fasting)); Potassium 3.6 mmol/L (3.5-5.1); Sodium 140.0 mmol/L (136-145)
[2025-06-26 06:05] LABS: Thyroid Stimulating Hormone 3.241 uIu/ml (0.300-4.500)
[2025-06-26] MEDS: AMPICILLIN/SULBACTAM SOD 3,000 MG/100 ML BAG IV SCH (06:19)
[2025-06-26] MEDS: LEVOTHYROXINE SODIUM 125 MCG TABLET PO SCH (06:19)
[2025-06-26] MEDS: OXYBUTYNIN CHLORIDE XL 5 MG TABCR PO SCH (06:49)
[2025-06-26 08:36] LABS: Hemoglobin A1C 6.7 % (4.5-5.6)
[2025-06-26] MEDS: LORATADINE 10 MG TAB PO SCH (08:56)
[2025-06-26] MEDS: FLUTICASONE PROPIONATE NA SPR 16 GM BTL SCH (08:56)
[2025-06-26] MEDS: ASPIRIN 81 MG ECTAB PO SCH (08:56)
[2025-06-26] MEDS: CHOLECALCIFEROL 25 MCG (1000 UNITS) TAB PO SCH (08:56)
[2025-06-26] MEDS ORDERED: INFLUENZA VACC TS2025-26(65y+)/PF (IIV3) 0.5mL Syr IM ONE (09:00)
[2025-06-26] MEDS: ENOXAPARIN INJ 40 MG/0.4 ML SYR SQ SCH (09:00)
[2025-06-26] MEDS: PREGABALIN 50 MG CAP PO SCH (10:08)
--- NOTE | 2025-06-26 10:38 | Discharge Summary ---
Discharge Summary Date of Service June 26, 2025 Principal Dx & Hospital Course #1 = Principal Diagnosis (1) Hypotension: Mr. Boggs is a pleasant 79M who was admitted with cough, sinus congestion, nausea. He and his just returned from a cruise. they live in [place] and were stopping by the area to see family when he decided to go to the ED to get evaluated. He tested positive for COVID here. CXR showing multifocal PNA. he has not required any supplemental O2. He is satting 96% on room air today. 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 He has a history of GIST tumor and is on chemotherapy. CD disc was made of the CT scan and he was instructed to send it to his oncologist in [place] on saturday. Patient and agreed to do so. He was briefly mildly hypotensive in the ED but this resolved, BP currently 131/74. He was started on unasyn for possible bacterial coinfection but his procalcitonin is low making this highly unlikely. Risks of abx outweigh the benefits at this point. since he is not hypoxic, he does not qualify for any covid medications either as risks outweigh benefits. He and his would like patient to be discharged DENNIS this am so they can go home in time before a snow storm arrives. He feels well. Vitals and labs are stable. there is no clear indication for further hospitalization. Notes For Next Care Provider Medication Changes From Visit none Admission HPI Per Admitting Provider History obtained from patient, family, and records. Medical history significant for hypertension, hyperlipidemia, VALENTINA on CPAP, DM2 on oral medication, hypothyroidism, GIST tumor status post surgery currently on Sutent, GERD, BPH, chronic anemia (unknown baseline), adrenal nodule, marijuana use, past tobacco abuse. Patient is a resident of [place], [place] who just returned from a 12-day [place] cruise today [facility]arking at [facility]. Patient passing by town to visit sister who lives locally before returning home to [place] tomorrow morning. Patient became sick on the cruise 4 days ago. Achy abdominal pain associate with nausea, vomiting symptoms. No diarrhea. No obvious bleeding. Usual cough productive of yellow sputum which patient attributes to smoking history. No chest pain, no SOB. Increasing weakness. Voice change noted as well. Patient consulted ER for worsening symptoms. NSS bolus, IV ceftriaxone and doxycycline administered at the ER. Lowest SBP of 90s documented at the ER. Medical History as above Surgical History : Leg surgery, bowel surgery Family History : Lung cancer Personal/Social history : Past tobacco abuse, ongoing marijuana use, retired [employer] employee Discharge Exam Vitals and labs reviewed General: Well appearing, NAD HEENT: EOMI, PERRLA Neck: Supple Cardiac: RRR no rubs gallops or murmurs Lungs: CTA no rhonchi wheezing or rales Abd: S NT ND BS positive : Deffered MSK: Full ROM. No obvious deformities Ext: No Edema cyanosis Skin: Warm, Dry Neuro: AOx3 No focal deficits. Psych: Normal Mood Updated Medication List Medication Instructions Recorded Confirmed Type acetaminophen 325 mg tablet 650 mg PO QID PRN Pain 06/25/25 06/26/25 History (Tylenol) aspirin 81 mg tablet,delayed 81 mg PO DAILY 06/25/25 06/26/25 History release atorvastatin 10 mg tablet 10 mg PO HS 06/25/25 06/26/25 History cholecalciferol (vitamin D3) 50 50 mcg PO DAILY 06/25/25 06/26/25 History mcg (2,000 unit) capsule (Vitamin D3) fluticasone propionate 50 2 spray intranasal DAILY 06/25/25 06/26/25 History mcg/actuation nasal spray,suspension levothyroxine 125 mcg tablet 125 mcg PO DAILYBB 06/25/25 06/26/25 History (Synthroid) loratadine 10 mg tablet (Claritin) 10 mg PO DAILY 06/25/25 06/26/25 History magnesium oxide 420 mg tablet 840 mg PO DAILY 06/25/25 06/26/25 History metformin 500 mg tablet 500 mg PO QDD 06/25/25 06/26/25 History mirtazapine 30 mg tablet 30 mg PO HS 06/25/25 06/26/25 History pantoprazole 40 mg tablet,delayed 40 mg PO DAILYBB 06/25/25 06/26/25 History release pregabalin 50 mg capsule (Lyrica) 50 mg PO BID 06/25/25 06/26/25 History spironolactone 25 mg tablet 50 mg PO DAILY 06/25/25 06/26/25 History tamsulosin 0.4 mg capsule 0.8 mg PO HS 06/25/25 06/26/25 History trospium 20 mg tablet 20 mg PO DAILYBB 06/25/25 06/26/25 History Hospital Stay Data Consultations 06/25/25 22:57 ED Decision to Admit Stat 06/26/25 01:06 Burn CD for patient ONCE Diagnostic Imagining Performed 06/25/25 18:38 CT abd pelvis IV con only Stat Pending Results Patient Have Any Pending Studies at Discharge: No Discharge Instructions Given to Patient (Per Discharging Provider) Please notify your oncologist on saturday and send them the CT scans for them to review. If you develop worsening shortness of breath, coughing, fever, lightheadedness, return to ED immediately Total Time Total Time Spent Total Time Spent (In Minutes): 40
[2025-06-26] MEDS ORDERED: ATORVASTATIN 10 MG TAB PO SCH (21:00)
[2025-06-26] MEDS ORDERED: TAMSULOSIN HCL 0.4 MG CAP PO SCH (21:00)
== END 2025-06-26 11:19 | disposition home or self-care (01) | DRG 177 ==
LOC: ED 17:10 → EDINP 23:06